=== PATIENT | female | born 1970 ===

== ENCOUNTER 2021-09-13 07:39 | Outpatient (RCR) | payer BC, SELFPAY | END 2021-12-02 11:19 | disposition home or self-care (01) | LOC: ANHDMC 07:39 | PROVIDERS: PCP Internal Medicine Endocrinology, Diabetes & Metabolism; Visit Provider Internal Medicine Endocrinology, Diabetes & Metabolism | DX: E11.65 Type 2 diabetes mellitus with hyperglycemia (principal) | CPT/HCPCS: 99199 ==